=== PATIENT | male | born 1965 | race Hispanic/Latino ===

== ENCOUNTER → 2024-02-19 | Outpatient (REF) | payer BC | LOC: DX 09:43 | PROVIDERS: ATTEND Family Medicine | DX: M85.88 Other specified disorders of bone density and structure, other site (principal); M79.605 Pain in left leg; M79.652 Pain in left thigh; G89.29 Other chronic pain | CPT/HCPCS: 77080; 93926; 93971 ==

== ENCOUNTER → 2024-09-09 | Outpatient (REF) | payer OTHER | LOC: RAD 12:37 | PROVIDERS: ATTEND Family Medicine | DX: R05.9 Cough, unspecified (principal); Z87.01 Personal history of pneumonia (recurrent) | CPT/HCPCS: 71046 ==